=== PATIENT | female | born 1975 | race Caucasian/White ===

== ENCOUNTER 2018-12-31 20:11 | Emergency (ER) | payer OTHER ==
[2018-12-31] MEDS ORDERED: ACETAMINOPHEN 325 MG TABLET (FP) PO ONE (20:25)
--- NOTE | 2018-12-31 20:26 | PDOC ---
Rapid Medical Evaluation Time Seen by Provider: 12/31/18 20:20 Medical Evaluation: 12/31/18 20:21 The patient is a 43 y/o F currently 10 weeks , with vaginal bleeding. LMP. Was seen last night at [facility] for the same. Now with slight vaginal bleeding Exam: pelvic deferred, VSS, afebrile Orders: TVUS, labs, tylenol Pt to proceed to the ER for further evaluation Discharge Disposition - Diagnosis Vaginal bleeding - Referrals - Patient Instructions - Post Discharge Activity
[2018-12-31 20:36] VITALS: TEMP 98.3; BMI 27.3
[2018-12-31] MEDS ORDERED: ACETAMINOPHEN 325 MG TABLET (FP) ONE (20:56)
--- NOTE | 2018-12-31 22:18 | PDOC ---
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 [facility] TV[facility] performed, patient came with report detailing that fetus is at 7 week size with no heartbeat. Patient here today for further vaginal bleeding and workup. LMP 10/17, has OBGYN care with Dr. Ayala. First . Describes vaginal bleeding as spotting without clots, denies feeling lightheaded. No previous episodes of clots. Intermittent suprapubic abd pain. Denies constipation/diarrhea, nausea/ vomiting. No urinary symptoms. No significant PMH. Past History - Past Medical History Allergies/Adverse Reactions: Allergies Allergy/AdvReac Type Severity Reaction Status Date / Time No Known Allergies Allergy Verified 12/31/18 20:26 - Suicide/Smoking/Psychosocial Hx Smoking History: Never smoked Have you smoked in the past 12 months: No Information on smoking cessation initiated: No Hx Alcohol Use: No Drug/Substance Use Hx: No Review of Systems - Review of Systems Able to Perform ROS?: Yes Is the patient limited Guyanese proficient: Yes Constitutional: No: Chills, Fever, Loss of Appetite, Weakness HEENTM: No: Recent change in vision, Difficulty Swallowing Respiratory: No: Cough, Orthopnea, Shortness of Breath, Productive cough Cardiac (ROS): No: Chest Pain, Edema, Irregular Heart Rate, Lightheadedness, Palpitations, Syncope, Chest Tightness ABD/GI: No: Abdominal Distended, Constipated, Diarrhea, Difficulty Swallowing, Nausea, Vomiting : No: Burning, Dysuria, Discharge, Frequency, Hematuria, Pain Integumentary: No: Bruising, Change in Color, Rash Neurological: No: Headache, Numbness Endocrine: No: Increased Hunger, Increased Thirst, Increased Urine Hematologic/Lymphatic: No: Anemia, Blood Clots *Physical Exam - Vital Signs Last Vital Signs Temp Pulse Resp BP Pulse Ox 98.3 F 77 16 132/86 100 12/31/18 20:20 12/31/18 20:20 12/31/18 20:20 12/31/18 20:20 12/31/18 20:20 - Physical Exam General Appearance: Yes: Nourished, Appropriately Dressed. No: Apparent Distress HEENT: positive: Normal Voice, Symmetrical, Pharynx Normal. negative: Scleral Icterus (R), Scleral Icterus (L), Rhinorrhea Neck: positive: Trachea midline, Supple. negative: Decreased range of motion Respiratory/Chest: positive: Lungs Clear, Normal Breath Sounds. negative: Respiratory Distress, Crackles, Rales, Rhonchi, Wheezing Cardiovascular: positive: Regular Rhythm, Regular Rate. negative: Edema, Murmur , Gallop/S3, Gallop/S4 Gastrointestinal/Abdominal: positive: Normal Bowel Sounds, Tender (suprapubic tenderness R>L), Soft. negative: Distended, Hernia, Mass Musculoskeletal: positive: Normal Inspection. negative: CVA Tenderness Extremity: positive: Normal Capillary Refill, Normal Inspection, Normal Range of Motion Integumentary: positive: Normal Color, Dry, Warm Neurologic: positive: Fully Oriented, Alert, Normal Mood/Affect, Normal Response , Motor Strength 5/ ED Treatment Course - LABORATORY CBC & Chemistry Diagram: 12/31/18 22:15 12/31/18 22:15 - RADIOLOGY Radiology Studies Ordered: Category Date Time Status TRANSVAGINAL US PREG [US] Stat Ultrasound 12/31/18 21:48 Ordered - Medications Given in the ED: ED Medications Discontinued Medications Generic Name Dose Route Start Last Admin Trade Name Freq PRN Reason Stop Dose Admin Acetaminophen 650 mg 12/31/18 20:25 12/31/18 20:59 Tylenol - PO 12/31/18 20:26 650 mg ONCE ONE Administration Medical Decision Making - Medical Decision Making 12/31/18 20:30 Rajani Phillips is a 43F at 10 weeks presenting with vaginal bleeding. Given TVUS results from OSH one day ago showing smaller than expected embryo and without heartbeat at 10 weeks, high concern for miscarriage. Will obtain CMP, CBC, quant B-hCG, and TVUS given presentation to evaluate. 12/31/18 23:33 TVUS shows results consistent with demise, size at 7 weeks with no heartbeat despite gestational age 10 weeks. *DC/Admit/Observation/Transfer Diagnosis at time of Disposition: Miscarriage - Discharge Dispostion Disposition: HOME Condition at time of disposition: Fair Decision to Admit order: No - Referrals Referrals: Oni Ayala [Primary Care Provider] - - Patient Instructions Printed Discharge Instructions: Dealing With Miscarriage, Miscarriage Additional Instructions: Today we evaluated you for vaginal bleeding. To do so, we took some blood samples and tested you for anemia or problems with electrolytes, and there were no problems. We also repeated the ultrasound that you had done yesterday, and unfortunately, the results show that the fetus has , and there is no chance that the heartbeat will return. In the coming days, your body will naturally remove the fetus through more bleeding. If you have abdominal pain or cramping, you can take tylenol. If you experience a lot of bleeding with clots, enough to soak up 2-3 pads, or if you experience worsening pain, fever, nausea, or vomiting, please return to the emergency room. It is important that you return to this hospital in 2 days (Friday) for re- evaluation to make sure that this process is proceeding. Please see your OBGYN Dr. Ayala next week for further follow-up. If Dr. Ayala asks, your blood type is A +. - Post Discharge Activity
[2018-12-31 22:34] LABS: BASO % 1.1 % (0-2.0); EOS % 1.9 % (0-4.5); HEMATOCRIT 41.4 % (32.4-45.2); HEMOGLOBIN 13.6 GM/dL (10.7-15.3); LYMPH % 30.1 % (8-40); MCH 28.7 pg (25.7-33.7); MCHC 32.9 g/dl (32.0-36.0); MEAN CELL VOLUME 87.5 fl (80-96); MONO % 7.5 % (3.8-10.2); NEUT % 59.4 % (42.8-82.8); PLATELET COUNT 304 K/MM3 (134-434); RBC 4.73 M/mm3 (3.60-5.2); RDW 13.6 % (11.6-15.6); WHITE BLOOD COUNT 6.8 K/mm3 (4.0-10.0)
--- NOTE | 2018-12-31 22:34 | PDOC ---
Documentation entered by Yassine Ventura SCRIBE, acting as scribe for Collin Fong MD. Collin Fong MD: This documentation has been prepared by the Audrey yang Nirvannie, SCRIBE, under my direction and personally reviewed by me in its entirety. I confirm that the documentation accurately reflects all work, treatment, procedures, and medical decision making performed by me. Attending Attestation - Resident Resident Name: Nando Reynoso - ED Attending Attestation I have performed the following: I have examined & evaluated the patient, The case was reviewed & discussed with the resident, I agree w/resident's findings & plan - HPI HPI: 12/31/18 21:33 The patient is a 43 year old 10 weeks female , with a significant past medical history of, who presents to the emergency department with, vaginal bleeding. Patient was seen at [facility] for similar symptoms at which time she was given a TVUS (depicting no heartbeat). She notes her vaginal bleeding has persisted, prompting her arrival to the ED. She denies recent chest pain or shortness of breath. Allergies: NKDA Past surgical history: None reported. Social history: Nonsmoker. Denies EtOH use and recreational drug use. Primary Care Physician: Dr. Ayala LMP: 10/17 - Physicial Exam PE: 01/01/19 00:15 Agree with exam as documented by resident - Medical Decision Making 01/01/19 00:15 with vaginal bleeding, concern for SAB F/u TVUS +IUP w/o FHR, consistent with demise DC with f/u in 2 days to trend bHCG and re-eval
[2018-12-31 22:38] LABS: EPI CELLS 0.1 /HPF (0-5/HPF); HYALINE CASTS 0 /lpf (0-8); PH,URINE 6.5 (5.0-8.0); URINE APPEARANCE CLEAR; URINE BACTERIA 14.1 /hpf (NEGATIVE); URINE BILIRUBIN NEGATIVE (NEGATIVE); URINE COLOR YELLOW; URINE GLUCOSE (UA) NEGATIVE (NEGATIVE); URINE KETONE NEGATIVE (NEGATIVE); URINE LEUK ESTERASE NEGATIVE (NEGATIVE); URINE NITRITE NEGATIVE (NEGATIVE); URINE PROTEIN NEGATIVE (NEGATIVE); URINE RBC 5 /hpf (0-4); URINE UROBILINOGEN 0.2 mg/dL (0.2-1.0); URINE WBC 0 /hpf (0-5)
[2018-12-31 23:42] LABS: ALBUMIN 3.4 g/dl (3.4-5.0); BILIRUBIN,TOTAL 0.9 mg/dL (0.2-1); BLOOD UREA NITROGEN 7.6 mg/dL (7-18); CALCIUM 8.5 mg/dL (8.5-10.1); CREATININE 0.6 mg/dL (0.55-1.3); POTASSIUM 4.4 mmol/L (3.5-5.1); TOT PROT 6.5 g/dl (6.4-8.2)
[2019-01-01 01:50] VITALS: BP 129/89; PULSE 75
== END 2019-01-01 00:25 | disposition home or self-care (01) ==
LOC: JER 20:11
DX: O03.9 Complete or unspecified spontaneous abortion without complication (principal)
CPT/HCPCS: 36415; 76817-TC; 80053; 81003; 84702; 85025; 86850; 86900; 86901; 87086; 99282-25

== ENCOUNTER 2019-01-02 12:10 | Emergency (ER) | payer OTHER ==
[2019-01-02 12:14] VITALS: BP 122/77; PULSE 90; TEMP 97.4; BMI 27.1
--- NOTE | 2019-01-02 13:25 | PDOC ---
History of Present Illness - General Chief Complaint: Revisit, Lab Variance Stated Complaint: REVISIT Time Seen by Provider: 01/02/19 13:05 - History of Present Illness Initial Comments: 01/02/19 13:23 43-year-old female 2 days status post loss of conception on ultrasound presents for evaluation of repeat blood work. She states over the last 2 days she has been bleeding to the point where she has soaked 25 pads in at 24 hour period. She complains of abdominal cramping as well. Past History - Past Medical History Allergies/Adverse Reactions: Allergies Allergy/AdvReac Type Severity Reaction Status Date / Time No Known Allergies Allergy Verified 01/02/19 12:14 COPD: No - Suicide/Smoking/Psychosocial Hx Smoking History: Never smoked Have you smoked in the past 12 months: No Hx Alcohol Use: No Drug/Substance Use Hx: No Review of Systems - Review of Systems : Yes: See HPI *Physical Exam - Vital Signs Last Vital Signs Temp Pulse Resp BP Pulse Ox 97.4 F L 90 18 122/77 99 01/02/19 12:12 01/02/19 12:12 01/02/19 12:12 01/02/19 12:12 01/02/19 12:12 - Physical Exam Comments: 01/02/19 13:24 HEAD: NC/AT EYES: Conjuntiva clear MS: Full ROM in all joints without edema NEUROLOGIC: No gross sensory or motor deficits, NVID SKIN: Normal color and temperature no lesions or rashes ED Treatment Course - RADIOLOGY Radiology Studies Ordered: Category Date Time Status TRANSVAGINAL US PREG [US] Stat Ultrasound 01/02/19 13:09 Ordered Medical Decision Making - Medical Decision Making 01/02/19 13:24 Aborted appropriate blood work and I will transfer this patient to the main emergency room. *DC/Admit/Observation/Transfer Diagnosis at time of Disposition: complicated with hemorrhage - Referrals - Patient Instructions - Post Discharge Activity
[2019-01-02 13:41] LABS: BASO % 0.6 % (0-2.0); HEMATOCRIT 38.3 % (32.4-45.2); HEMOGLOBIN 12.7 GM/dL (10.7-15.3); LYMPH % 17.7 % (8-40); MCH 29.1 pg (25.7-33.7); MCHC 33.3 g/dl (32.0-36.0); MEAN CELL VOLUME 87.5 fl (80-96); MONO % 5.5 % (3.8-10.2); NEUT % 75.2 % (42.8-82.8); RBC 4.38 M/mm3 (3.60-5.2); RDW 13.8 % (11.6-15.6); WHITE BLOOD COUNT 9.9 K/mm3 (4.0-10.0)
[2019-01-02 14:04] LABS: PLATELET COUNT 326 K/MM3 (134-434)
[2019-01-02 14:12] LABS: ALBUMIN 3.8 g/dl (3.4-5.0); BLOOD UREA NITROGEN 7.1 mg/dL (7-18); CREATININE 0.7 mg/dL (0.55-1.3); POTASSIUM 4.2 mmol/L (3.5-5.1)
[2019-01-02 14:34] LABS: INR 0.98 (0.83-1.09); PROTHROMBIN TIME (PATIENT) 11.6 SEC (9.7-13.0)
[2019-01-02 14:35] LABS: BILIRUBIN,TOTAL 1.2 mg/dL (0.2-1)
[2019-01-02] MEDS ORDERED: IBUPROFEN 600 MG TABLET (FP) PO ONE ×2 (15:31→15:41)
[2019-01-02] MEDS ORDERED: METHYLERGONOVINE MALEATE 0.2 MG TABLET (FP) PO ONE (15:35)
--- NOTE | 2019-01-02 15:42 | PDOC ---
Attending Attestation - Resident Resident Name: Natalie Currie - ED Attending Attestation I have performed the following: I have examined & evaluated the patient, The case was reviewed & discussed with the resident, I agree w/resident's findings & plan, Exceptions are as noted - HPI HPI: 43 yo F recently diagnosed with demise presents with heavy vaginal bleeding that started yesterday, has lightened considerably today. She states she has been having cramping lower abd pain. She took tylenol yesterday, but nothing today. - Physicial Exam PE: GENERAL: Awake, alert, and fully oriented, in no acute distress HEAD: No signs of trauma EYES: PERRLA, EOMI, sclera anicteric, conjunctiva clear ENT: Auricles normal inspection, hearing grossly normal, nares patent, oropharynx clear without exudates. Moist mucosa NECK: Normal ROM, supple, no lymphadenopathy, JVD, or masses LUNGS: Breath sounds equal, clear to auscultation bilaterally. No wheezes, and no crackles HEART: Regular rate and rhythm, normal S1 and S2, no murmurs, rubs or gallops ABDOMEN: Soft, nontender, normoactive bowel sounds. No guarding, no rebound. No masses EXTREMITIES: Normal range of motion, no edema. No clubbing or cyanosis. No cords, erythema, or tenderness NEUROLOGICAL: Cranial nerves II through XII grossly intact. Normal speech, normal gait. Motor and sensation intact SKIN: Warm, dry, normal turgor, no rashes or lesions noted. - Medical Decision Making Pt reports improvement from yesterday, bleeding is decreasing. Will give methergine, as there is still some clot in the uterus, but no POCs. Stable for DC home.
--- NOTE | 2019-01-02 15:49 | PDOC ---
History of Present Illness - General Chief Complaint: Revisit, Lab Variance Stated Complaint: REVISIT Time Seen by Provider: 01/02/19 13:05 - History of Present Illness Initial Comments: Rajani Phillips is a 43yo woman with a known demise who prsents with heavy vaginal bleeding and abdominal pain. She states that she was 10wks by LMP, but she had an ultrasound previously at an OSH showing no FHR, and this was repeated on a recent visit to the [facility] ED on 12/31/18. At that time, TVUS showed an IUP without FHR, approx 7wks gestation, consistent with demise. Ms Phillips says that since her previous visit she has "lost the baby" and says that she passed POC at home. However, she has had significant bleeding at home up to 20 pads yesterday. She also has 4-5/10 abdominal and low back pain. She tried taking acetaminophen yesterday without significant relief, but she did not try taking anything today. Past History - Past Medical History Allergies/Adverse Reactions: Allergies Allergy/AdvReac Type Severity Reaction Status Date / Time No Known Allergies Allergy Verified 01/02/19 12:14 Home Medications: Ambulatory Orders Ibuprofen 600 mg PO Q6H PRN #30 tablet 01/02/19 Methylergonovine Maleate [Methergine] 0.2 mg PO ASDIR #1 tablet 01/02/19 COPD: No - Reproductive History Is Patient Now?: No - Suicide/Smoking/Psychosocial Hx Smoking History: Never smoked Have you smoked in the past 12 months: No Hx Alcohol Use: No Drug/Substance Use Hx: No Review of Systems - Review of Systems Comments:: General: No fevers, no chills, no weight or appetite change, no malaise HEENT: No changes in vision, no changes in hearing, no congestion, no sore throat CV: No chest pain, no palpitations, no LE edema Pulm: No SOB, no cough, no wheezing GI: No nausea or vomiting, no change in bowel habits, no melena : No frequency, no urgency, no dysuria. See HPI Musc: No back pain, no joint swelling, no recent injury Skin: No rash, no lesions, no erythema Endo: No excessive thirst, no heat/cold intolerance Heme: No unusual bruising or bleeding, no swollen glands Neuro: No syncope, no numbness/tingling, no focal weakness Vasc: No claudication Psych: No recent change in mood, no SI or HI *Physical Exam - Vital Signs Last Vital Signs Temp Pulse Resp BP Pulse Ox 97.4 F L 90 18 122/77 99 01/02/19 12:12 01/02/19 12:12 01/02/19 12:12 01/02/19 12:12 01/02/19 12:12 - Physical Exam Comments: General: Comfortable, no acute distress HEENT: PERRL, EOMI, MMM, voice normal Cards: RRR, no murmur appreciated Pulm: Comfortable on room air, clear to auscultation bilaterally Abd: Soft, Moderately TTP in lower abdomen, nondistended : Normal external genitalia; dripping dark blood. Dark blood pooling in vaginal canal. Cervix enlarged, purple in color. Os not palpated. Mild discomfort with exam but no CMT or focal adnexal TTP Ext: Atraumatic. No LE edema Vasc: Extremities WWP Skin: Normal color, no rashes or lesions Neuro: A&Ox3, CN grossly intact, normal speech, motor/sensory grossly intact and symmetric Psych: Mood appropriate to situation ED Treatment Course - LABORATORY CBC & Chemistry Diagram: 01/02/19 13:29 01/02/19 13:29 - ADDITIONAL ORDERS Additional order review: Laboratory Results 01/02/19 01/02/19 01/02/19 13:29 13:29 13:29 PT with INR 11.60 INR 0.98 Sodium 139 Potassium 4.2 Chloride 108 H Carbon Dioxide 26 Anion Gap 5 L BUN 7.1 Creatinine 0.7 Est GFR (CKD-EPI)AfAm 122.13 Est GFR (CKD-EPI)NonAf 105.37 Random Glucose 97 Calcium 9.0 Total Bilirubin 1.2 H AST 14 L ALT 21 Alkaline Phosphatase 68 Total Protein 7.0 Albumin 3.8 Beta HCG, Quant Blood Type A POSITIVE Antibody Screen Negative 01/02/19 13:29 PT with INR INR Sodium Potassium Chloride Carbon Dioxide Anion Gap BUN Creatinine Est GFR (CKD-EPI)AfAm Est GFR (CKD-EPI)NonAf Random Glucose Calcium Total Bilirubin AST ALT Alkaline Phosphatase Total Protein Albumin Beta HCG, Quant 883.5 Blood Type Antibody Screen 01/02/19 13:29 RBC 4.38 MCV 87.5 MCHC 33.3 RDW 13.8 MPV 8.0 Neutrophils % 75.2 D Lymphocytes % 17.7 D Monocytes % 5.5 Eosinophils % 1.0 Basophils % 0.6 Medical Decision Making - Medical Decision Making 01/02/19 15:32 Rajani Phillips is a 43yo woman with a known demise who prsents with heavy vaginal bleeding and abdominal pain; she reports that she passed POC at home since she was seen in the ED on 12/31 but is concerned about the continued bleeding and pain. - Labs ordered in E. Reviewed. Slight drop in hgb to 12 from 13 on 12/31 but no concerning findings - TVUS ordered in [facility], also completed. Shows clots v POC in the cervical canal but nothing appears to be retained in the uterus - Pelvic exam to be completed 01/02/19 15:48 - Pelvic exam with moderate dark blood in vaginal canal. Could not palpate os, cannot determine whether she is still passing clot/POC but none visualized - Discussed results w/ patient. She says that the bleeding has slowed significantly since yesterday; she is more concerned about the pain and impact on future pregnancies - Methergine ordered for clots seen on ultrasound - Ibuprofen for pain. Advised regarding pain control at home - Will give contact information for OB/gyne so that she can establish care Discussed with Dr Rousseau. Natalie Currie PGY1 *DC/Admit/Observation/Transfer Diagnosis at time of Disposition: complicated with hemorrhage - Discharge Dispostion Disposition: HOME Condition at time of disposition: Stable Decision to Admit order: No - Prescriptions Prescriptions: Ibuprofen 600 mg PO Q6H PRN #30 tablet PRN Reason: Pain Methylergonovine Maleate [Methergine] 0.2 mg PO ASDIR #1 tablet - Referrals Referrals: Rebecca Dave MD [Staff Physician] - Ross Williamson MD [Staff Physician] - Martha Mejia MD [Staff Physician] - Jose Campos MD [Staff Physician] - Antonina Gaspar MD [Staff Physician] - Jennie Ramirez DO [Staff Physician] - [facility] [Provider Group] - Patient Instructions Printed Discharge Instructions: DI for Miscarriage Additional Instructions: Discharge Instructions: You were seen in the emergency department for heavy bleeding and pain following a miscarriage. You had an ultrasound that shows blood clots in the uterus, but it appears that the miscarriage has completed. You will probably stop having bleeding and pain within a few days. Home Care and Follow Up: - You may use over the counter medications as needed for pain at home. 650- 1000mg acetaminophen (Tylenol) or 600mg ibuprofen (Motrin or Advil) can be used every 6-8 hours. If needed for continued pain, these medications may be alternated every 3-4 hours. For example, if you take ibuprofen at 9am, you may take acetaminophen at noon, ibuprofen at 3pm, etc. - It is strongly recommended that you take ibuprofen with food to help prevent stomach irritation. - Try using a heating pad for additional pain control. - Do not stop moving around. As much as you can tolerate, continue to do light exercise and stretching exercises. - Please make an appointment to see obstetrics within the next 2-3 days or as soon as possible. You have been provided with several options for follow up; please see the attached list. - Seek immediate medical care if you have significant worsening of your symptoms , your bleeding worsens, you have heavy bleeding for more than a week, you become lightheaded, you have severe pain, or you have any other medical emergency. Leonel Randolph: Cherrie meek departamentin e urgjencs nicolas fallon [facility] lizz blount aborti. Cherrie blount ultratinguj q tregon mpiksjen e gjakut n mitr, por duket se dshtimi ka prfunduar. Cherrie pérez do t ndaloni joycelyn huston [facility] joyce batemants. Natalie ocampokja n shtpi: - Cherrie hirsch prdorni mbi medikamente counter sipas nevojs nicolas meek shtpi. 650-1000mg acetaminophen (Tylenol) ose 600mg ibuprofen (Motrin ose Advil ) calvin hirsch prdoret do 6-8 or. Nse sht e nevojshme tyson martinez medikamente christid t ndrrohen do 3-4 or. Pr shembull, nse merrni ibuprofen n orn 9, ju mund t merrni acetaminophen n mesdit, ibuprofen n orn 3, etj. - sht e rekomandueshme q ju t merrni ibuprofen me ushqim pr t ndihmuar n parandalimin e acarimit t stomakut. - Provoni t prdorni nj bllok ngrohje pr kontroll shtes t dhimbjes. - Mos u ndalni. Sa m damian q mund t toleroni, vazhdoni t bni strvitje t lehta dhe ushtrime shtrnguese. - Cherrie lutemi t bni nj takim pr t par obstetrin joyce 2-3 ditve t ardhshme ose sa m shpejt t jet e mundur. Cherrie gerald pajisur me disa opsione pr danajewallacejegaviota; cherrie lutemi shihni listn e bashkaiggyjitur. - Abdi carreon mjeksor t menjhershm nse kristel prkeqsim t ndjeshm t simptomave, prkeqson gjakderdhjet, kristel gjakderdhje t rnd pr m damian se nj berry, bheni t lodhur, kristel dhimbje t forta ose kristel ndonj emergjenc tjetr mjeksore. - Post Discharge Activity
== END 2019-01-02 16:46 | disposition home or self-care (01) ==
LOC: JER 12:10
DX: O03.6 Delayed or excessive hemorrhage following complete or unspecified spontaneous abortion (principal)
CPT/HCPCS: 36415; 76817-TC; 80053; 84702; 85025; 85610; 86850; 86900; 86901; 99281-25